=== PATIENT | male | born 1955 | race Caucasian/White ===

== ENCOUNTER 2016-11-01 21:03 | Emergency (ER) | payer SELFPAY ==
--- NOTE | 2016-11-01 23:33 | C.PDOC ---
History Of Present Illness Patient is a 61 year old male with a complaint of chronic left leg pain w/ burning for the past few years, associated with chronic erectile dysfunction and occasional numbness to tongue. Patient has had multiple evaluations for the same symptoms, including MRIs which have had benign findings since 2010 but none in [place]. Patient states he takes ibuprofen which improves his symptoms. Patient has not been able to follow up with urology and neurology due to change in insurance. Patient denies weakness of the extremities or headache. Time Seen by Provider: 11/01/16 23:19 Chief Complaint (Nursing): Weakness/Neurological Deficit History Per: Patient History/Exam Limitations: no limitations Onset/Duration Of Symptoms: Days Current Symptoms Are (Timing): Still Present Recent travel outside of the [place]: No Past Medical History Reviewed: Historical Data, Nursing Documentation, Vital Signs Vital Signs: Last Vital Signs Temp 97.8 F 11/01/16 23:51 Pulse 56 L 11/01/16 23:51 Resp 12 11/01/16 23:51 BP 127/78 11/01/16 23:51 Pulse Ox 96 11/02/16 00:39 - Medical History PMH: Diabetes (does not take any medication) Other PMH: Chronic left leg pain. Chronic erectile dysfunction. Surgical History: No Surg Hx Family History: States: Unknown Family Hx - Social History Hx Alcohol Use: No Hx Substance Use: No - Immunization History Hx Tetanus Toxoid Vaccination: No Hx Influenza Vaccination: No Hx Pneumococcal Vaccination: No Review Of Systems Musculoskeletal: Positive for: Leg Pain (Left) Neurological: Positive for: Numbness (Tongue), Other (Erectile dysfunction). Negative for: Weakness, Headache Physical Exam - Physical Exam Appears: Well, Non-toxic Skin: Normal Color, Warm, Dry Head: Atraumatic, Normacephalic Oral Mucosa: Moist Chest: Symmetrical, No Tenderness Cardiovascular: Rhythm Regular, No Murmur Respiratory: Normal Breath Sounds, No Rales, No Rhonchi, No Wheezing Gastrointestinal/Abdominal: Soft, No Tenderness Extremity: Normal ROM Neurological/Psych: Oriented x3, Normal Speech, Normal Cognition, Other (No focal deficits) ED Course And Treatment O2 Sat by Pulse Oximetry: 96 (Room air) Pulse Ox Interpretation: Normal Progress Note: Motrin PO administered. Medical Decision Making Medical Decision Making: c/o vague L>R leg pains/parasthesias since 2010 outpatient LS MRI benign Defer repeat w/u at this time/hour as s/s wel controlled with NSAIDS @ home and no new findings. Pt with poor insight and lost to f/u with Neurology was extensively educated. Disposition Doctor Will See Patient In The: Office Counseled Patient/Family Regarding: Studies Performed, Diagnosis - Disposition Referrals: [facility] [Outside] Tyson To MD [Staff Provider] - Disposition: HOME/ ROUTINE Disposition Time: 23:33 Condition: GOOD Additional Instructions: sigue ibuprofeno 600 mg cada 6 horas juan necessario Pepcid 20 mg en la noche para prevenir irritacion' del estomago debido al Ibuprofeno Sigue con [facility] para zuleyma un Neurolog- Dr. Yousuf Kleineva neil resultados del MRI hecho. Instructions: Sciatica (ED) Print Language: GREEK - Clinical Impression Clinical Impression: Sciatica - Scribe Statement The provider has reviewed the documentation as recorded by the Scribe Neil Brady All medical record entries made by the Scribe were at my direction and personally dictated by me. I have reviewed the chart and agree that the record accurately reflects my personal performance of the history, physical exam, medical decision making, and the department course for this patient. I have also personally directed, reviewed, and agree with the discharge instructions and disposition.
[2016-11-01 23:56] VITALS: RESP 12
[2016-11-01 23:57] VITALS: BP 127/78; PULSE 56; TEMP 97.8
[2016-11-02 00:36] VITALS: O2SAT 96
== END 2016-11-01 23:57 | disposition home or self-care (01) ==
LOC: C.ER 21:03
DX: M54.30 Sciatica, unspecified side (principal)

== ENCOUNTER 2018-02-15 09:00 | Emergency (ER) | payer MEDICAID, OTHER ==
[2018-02-15 09:10] VITALS: BP 123/77; PULSE 74; RESP 17; TEMP 98.2; O2SAT 96
--- NOTE | 2018-02-15 09:35 | C.PDOC ---
History Of Present Illness Albino Peacock is a 62 year old male with a past medical history of diabetes and chronic back pain, who is presenting to the ED with complaints of worsening back pain that worsen for past few days. Patient states that he has had chronic back pain for many years but it has worsened and is exacerbated when moving and walking with intermittent radiation to B/L lEs. Admits, works and lifts heavy boxes. Pt admits, similar sx in past and c/w chronic back pain exacerbation. Patient denies known recent trauma or injury, fever, chills, recent surgeries or injections in his back, denies fever, chills, abd. pain, N/V/D, UTI sx, saddle anesthesia, incontinence, denies any numbness, weakness, sensory or vascular deficits to B/L lEs. Time Seen by Provider: 02/15/18 09:19 Chief Complaint (Nursing): Back Pain History Per: Patient Past Medical History Reviewed: Historical Data, Nursing Documentation, Vital Signs Vital Signs: Last Vital Signs Temp 98.2 F 02/15/18 09:04 Pulse 74 02/15/18 09:04 Resp 17 02/15/18 09:04 BP 123/77 02/15/18 09:04 Pulse Ox 96 02/15/18 10:22 - Medical History PMH: Diabetes (does not take any medication? Pt denies nay history.), Gastrointestinal Ulcer, Chronic Pain (back) Denies: Asthma, HTN Family History: States: No Known Family Hx - Social History Hx Alcohol Use: No Hx Substance Use: No - Immunization History Hx Tetanus Toxoid Vaccination: No Hx Influenza Vaccination: No Hx Pneumococcal Vaccination: No Review Of Systems Except As Marked, All Systems Reviewed And Found Negative. Constitutional: Negative for: Fever, Chills ENT: Negative for: Ear Discharge, Nose Discharge, Throat Pain, Throat Swelling Cardiovascular: Negative for: Chest Pain, Palpitations, Edema, Light Headedness Respiratory: Negative for: Cough, Shortness of Breath Gastrointestinal: Negative for: Nausea, Vomiting, Abdominal Pain, Diarrhea Genitourinary: Negative for: Dysuria, Frequency, Incontinence Musculoskeletal: Positive for: Back Pain. Negative for: Neck Pain Skin: Negative for: Rash Neurological: Negative for: Weakness, Numbness Physical Exam - Physical Exam Appears: Well, Non-toxic, No Acute Distress Skin: Normal Color, Warm, Dry, No Rash, No Ecchymosis Head: Normacephalic Eye(s): bilateral: PERRL Nose: No Discharge Oral Mucosa: Moist Throat: No Drooling Neck: Trachea Midline, Supple Gastrointestinal/Abdominal: Soft, No Tenderness, No Distention, No Guarding Back: No CVA Tenderness, Paraspinal Tenderness (diffuse lumbar paraspinal with palpable musce spasm.), Straight Leg Raising (Right leg (+)70 degrees, Left leg (+) 60 degrees) Extremity: Normal ROM, No Tenderness, No Pedal Edema, No Deformity, No Swelling Neurological/Psych: Oriented x3, Normal Speech, Normal Motor, Normal Sensation, Normal Reflexes ED Course And Treatment O2 Sat by Pulse Oximetry: 96 Pulse Ox Interpretation: Normal Progress Note: On re-eval, pt is afebrile, hemodynamicaly stable. Non-toxic. AMbulatory in ED with stable gait. ENT: No acute findings. Neck: Supple, (-) midline tenderness. Abd: benign, (-) guarding, (-) rebound. back: (-) CVA tenderness. Neuorlogicaly intact. UA results (-). FSBS 98. Pt has clinical findings c/w lumbar radiculopathy. Pt advised adn ref. to f/u with PMD, PM in 2 -3 days for re-eval and pain control. Disposition Counseled Patient/Family Regarding: Diagnosis, Need For Followup, Rx Given - Disposition Referrals: [facility] [Outside] Disposition: HOME/ ROUTINE Disposition Time: 10:12 Condition: STABLE Additional Instructions: Avoid heavy lifting, bending forwards, any physical activity for 1 week Take medication as prescribed Follow up with PMD, Pain Management in2 -3 days for re-evaluation. Return if any new changes. Evite levantar cosas pesadas, inclinarse hacia adelante, cualquier actividad f kev jessi 1 semana [place] la medicacin segn lo prescrito Anatoly un seguimiento con PMD, manejo del dolor en 2-3 pimentel para chan nueva evaluacin. Regrese si hay nuevos cambios. Prescriptions: Gabapentin [Neurontin] 300 mg PO Q12 #10 cap Methocarbamol [Robaxin] 500 mg PO TID #20 tab Prednisone [Deltasone] 40 mg PO DAILY #6 tablet Instructions: Radiculopathy Forms: [facility] (Yakut) Print Language: ARMENIAN - Clinical Impression Clinical Impression: Lumbar radiculopathy
[2018-02-15 10:23] LABS: URINE BILIRUBIN NEGATIVE (NEGATIVE); URINE BLOOD NEGATIVE (NEGATIVE); URINE CLARITY Clear (Clear); URINE COLOR Yellow (YELLOW); URINE GLUCOSE (UA) NORMAL (Normal); URINE LEUKOCYTE ESTERASE NEG Leu/uL (Negative); URINE PROTEIN NEGATIVE (NEGATIVE); URINE UROBILINOGEN NORMAL mg/dL (0.2-1.0)
== END 2018-02-15 10:56 | disposition home or self-care (01) ==
LOC: C.ER 09:00
DX: M54.16 Radiculopathy, lumbar region (principal)
CPT/HCPCS: 81001; 82948; 96372; 99284; J2930